=== PATIENT | female | born 1940 | race Caucasian/White ===

== ENCOUNTER 2021-09-27 11:15 | Outpatient (RCR) | payer MEDICARE | END 2021-09-29 | disposition home or self-care (01) | LOC: CR 11:15 | PROVIDERS: ATTEND Internal Medicine Interventional Cardiology | DX: I10 Essential (primary) hypertension (principal) | CPT/HCPCS: 93798 ==

== ENCOUNTER 2021-10-25 11:25 | Outpatient (RCR) | payer MEDICARE | END 2021-10-30 | disposition home or self-care (01) | LOC: CR 11:25 | PROVIDERS: ATTEND Internal Medicine Interventional Cardiology | DX: I10 Essential (primary) hypertension (principal); Z95.5 Presence of coronary angioplasty implant and graft | CPT/HCPCS: 93798 ==